=== PATIENT | female | born 1955 | race Caucasian/White ===

== ENCOUNTER → 2020-03-22 | Outpatient (CLI) | payer OTHER | LOC: DIA.ED | DX: E11.40 Type 2 diabetes mellitus with diabetic neuropathy, unspecified (principal); Z79.84 Long term (current) use of oral hypoglycemic drugs; I10 Essential (primary) hypertension; E03.9 Hypothyroidism, unspecified | CPT/HCPCS: G0108 ==

== ENCOUNTER → 2020-03-27 | Outpatient (CLI) | payer OTHER | LOC: DIA.ED 10:48 | DX: E11.40 Type 2 diabetes mellitus with diabetic neuropathy, unspecified (principal); Z79.84 Long term (current) use of oral hypoglycemic drugs; I25.10 Atherosclerotic heart disease of native coronary artery without angina pectoris; I10 Essential (primary) hypertension; E03.9 Hypothyroidism, unspecified | CPT/HCPCS: G0108 ==

== ENCOUNTER → 2020-04-28 | Outpatient (CLI) | payer OTHER | LOC: MC.RAD 09:30 | DX: N63.20 Unspecified lump in the left breast, unspecified quadrant (principal) ==

== ENCOUNTER → 2020-10-27 | Outpatient (CLI) | payer MEDICARE | LOC: MC.RAD 12:56 | DX: N63.20 Unspecified lump in the left breast, unspecified quadrant (principal) ==

== ENCOUNTER 2020-12-08 14:02 | Inpatient (IN) | payer MEDICARE, BC ==
[~2020-12-08] VITALS: Ht 177.8 cm; Wt 81.4 kg
[2020-12-08] VITALS (10 sets, daily range): BP systolic 112–132; BP diastolic 59–71; PULSE 100–108; TEMP 98.2–99.9
[2020-12-08 15:12] LABS: BASO % 0.3 % (0.0-2.0); EOS # 0.1 (0.0-0.7); EOS % 1.4 % (0-4.0); GRAN # 2.5 (1.4-6.5); GRAN % 68.2 % (42.2-75.2); LYMPH # 0.6 (1.2-3.4); LYMPH % 15.4 % (20.0-51.0); MEAN CELL VOLUME 82 fl (80.0-100.0); MEAN CORPUSCULAR HGB CONC 27 g/dl (33.0-37.0); MONO # 0.5 (0.1-0.6); MONO % 14.4 % (1.7-9.3); PLATELET COUNT 129 K/mm3 (130-400); RED BLOOD COUNT 2.12 M/mm3 (4.10-5.30); REDCELL DISTRIBUTION WIDTH-CV 19.8 % (11.5-14.5)
[2020-12-08] MEDS ORDERED: GLUCOTROL 5M5 MG/TAB PO (15:15)
[2020-12-08] MEDS ORDERED: PRILOTC (15:16)
[2020-12-08] MEDS ORDERED: ONE-A-DAY ESSE1 EACH PO (15:16)
[2020-12-08] MEDS ORDERED: LIPITOR20 MG PO (15:17)
[2020-12-08] MEDS ORDERED: FOLIC ACID 11 MG/TA1 PO (15:18)
[2020-12-08] MEDS ORDERED: EFFEXOR-XR150 MG PO (15:18)
[2020-12-08] MEDS ORDERED: GLUCOPHAGE1000 MG PO (15:19)
[2020-12-08] MEDS ORDERED: DESYREL 100MG100 MG PO (15:20)
[2020-12-08] MEDS ORDERED: SYNTHROID0.088 MG/T PO (15:20)
[2020-12-08] MEDS ORDERED: NORVASC 10MG10 MG PO (15:21)
[2020-12-08] MEDS ORDERED: IBU800 M1 PO (15:21)
[2020-12-08 15:22] LABS: HEMATOCRIT 17.3 % (37.0-47.0); HEMOGLOBIN 4.6 g/dl (12.5-16.0)
[2020-12-08] MEDS ORDERED: CALCIUM CARBON650 M2 (15:22)
[2020-12-08 15:33] LABS: ALBUMIN 3.8 gm/dL (3.5-5.0); BILIRUBIN,TOTAL 0.7 mg/dL (0.0-1.0); CALCIUM 8.4 mg/dL (8.4-10.2); CREATININE, serum 0.6 (0.52-1.25); POTASSIUM 3.2 mmol/L (3.4-5.0); TOTAL PROTEIN 7.9 gm/dL (6.4-8.2)
[2020-12-08 15:34] LABS: INR 1.6 (0.8-3.0); PROTHROMBIN TIME 17.9 SECONDS (9.7-12.8)
[2020-12-08 15:56] LABS: MEAN CORPUSCULAR HEMOGLOBIN 22 pg (27.0-31.0)
[2020-12-08 17:12] LABS: BASO % 0.3 % (0.0-2.0); EOS # 0.1 (0.0-0.7); EOS % 1.3 % (0-4.0); GRAN # 2.7 (1.4-6.5); GRAN % 67.8 % (42.2-75.2); LYMPH # 0.6 (1.2-3.4); MEAN CELL VOLUME 80 fl (80.0-100.0); MEAN CORPUSCULAR HGB CONC 28 g/dl (33.0-37.0); MEAN PLATELET VOLUME 10.7 fl (7.4-10.4); MONO # 0.6 (0.1-0.6); MONO % 15.3 % (1.7-9.3); PLATELET COUNT 126 K/mm3 (130-400); RED BLOOD COUNT 1.96 M/mm3 (4.10-5.30); REDCELL DISTRIBUTION WIDTH-CV 19.7 % (11.5-14.5)
[2020-12-08 17:14] LABS: MEAN CORPUSCULAR HEMOGLOBIN 22 pg (27.0-31.0)
[2020-12-08 17:15] LABS: HEMATOCRIT 15.7 % (37.0-47.0); HEMOGLOBIN 4.4 g/dl (12.5-16.0)
[2020-12-08 17:19] LABS: INR 1.6 (0.8-3.0); PROTHROMBIN TIME 18.3 SECONDS (9.7-12.8)
[2020-12-08 17:47] LABS: RETIC # 0.03 M/mm3 (0.02-0.16); RETIC % 1.6 % (0.5-3.52)
--- NOTE | 2020-12-08 19:02 | NUR ---
Patient has been doing well since being admitted to floor. Got to floor around 1745. Second IV started to right forearm. Blood transfusing, increased to 150ml/hr when she arrived to the floor. Patient is alert and oriented. Discussed her home medication list with her. The medication ibrance is not her home medication. She thinks it is a medication her mother takes for breast cancer. She stated it doesn't sound familiar at all. The medication has been getting filled monthly. Notified pharmacy. Explained to patient that somehow the pharmacy has got the accounts mixed up and it is showing up that she takes this medication. Oriented patient to room. Vital signs stable. Explained she may be getting more than the 2 units of blood. No other changes at this time. Call light within reach. Patient is eating supper at this time. She has notified her family of her admission.
--- NOTE | 2020-12-08 20:00 | NUR ---
Second unit of PRBCS started at this time- VSS, no adverse reactions with first unit- tolerating well, IV fluids of NS at 100cc/hr-
[2020-12-08 23:27] LABS: MEAN CELL VOLUME 80 fl (80.0-100.0); MEAN CORPUSCULAR HGB CONC 30 g/dl (33.0-37.0); MEAN PLATELET VOLUME 10.7 fl (7.4-10.4); PLATELET COUNT 113 K/mm3 (130-400); RED BLOOD COUNT 2.71 M/mm3 (4.10-5.30); REDCELL DISTRIBUTION WIDTH-CV 17.9 % (11.5-14.5)
[2020-12-08 23:31] LABS: HEMATOCRIT 21.7 % (37.0-47.0); HEMOGLOBIN 6.5 g/dl (12.5-16.0); MEAN CORPUSCULAR HEMOGLOBIN 24 pg (27.0-31.0)
[2020-12-09] VITALS (14 sets, daily range): BP systolic 120–162; BP diastolic 58–85; PULSE 98–105; TEMP 98.2–99.8
--- NOTE | 2020-12-09 00:28 | NUR ---
repeat hgb cone after 2 units of blood- hgb 6.5,, Bonnie aware--order to give another unit of blood- Started at this time . patient tolerating blood without adverse reactions-
--- NOTE | 2020-12-09 04:47 | NUR ---
3 units of blood given last evening/night- tolerated well- VSS. waiting for lab to do a repeat hgb check.
[2020-12-09 06:59] LABS: MEAN CELL VOLUME 84 fl (80.0-100.0); MEAN CORPUSCULAR HGB CONC 30 g/dl (33.0-37.0); MEAN PLATELET VOLUME 11.1 fl (7.4-10.4); PLATELET COUNT 118 K/mm3 (130-400); RED BLOOD COUNT 2.92 M/mm3 (4.10-5.30); REDCELL DISTRIBUTION WIDTH-CV 18.1 % (11.5-14.5)
[2020-12-09 07:00] LABS: HEMATOCRIT 24.4 % (37.0-47.0); HEMOGLOBIN 7.3 g/dl (12.5-16.0); MEAN CORPUSCULAR HEMOGLOBIN 25 pg (27.0-31.0)
--- NOTE | 2020-12-09 07:00 | NUR ---
Report received from FLAQUITO Rodriguez. PT in bed resting, feeling well, denies needs, will continue to monitor.
[2020-12-09 07:15] LABS: ALBUMIN 3.3 gm/dL (3.5-5.0); BILIRUBIN,TOTAL 1.1 mg/dL (0.0-1.0); CALCIUM 8.2 mg/dL (8.4-10.2); CREATININE, serum 0.44 (0.52-1.25); POTASSIUM 3.5 mmol/L (3.4-5.0); TOTAL PROTEIN 6.8 gm/dL (6.4-8.2)
[2020-12-09 07:37] LABS: IRON,SERUM 45 ug/dL (35-150)
[2020-12-09 07:47] LABS: TOTAL IRON BINDING CAPACITY 455 ug/dL (265-497)
--- NOTE | 2020-12-09 08:08 | NUR ---
Assessment charted. PT states she feels SOB when ambulating and weak but appears well. R eye black eye from fall at home when tripped over rug, healing well. IVF to RFA. INT to LFA. Prepped for EGD today. Denies pain or other needs, will continue to monitor.
[2020-12-09 08:14] LABS: ANISOCYTOSIS 1+; EOSINOPHIL 4 % (0-4); HYPOCHROMIA 1+; LYMPHOCYTE 6 % (20.0-51.0); NEUTROPHILS 83 % (42.0-75.2); PLATELET ESTIMATE DECREASED (NORMAL)
[2020-12-09 14:35] LABS: MEAN CELL VOLUME 84 fl (80.0-100.0); MEAN CORPUSCULAR HGB CONC 29 g/dl (33.0-37.0); PLATELET COUNT 118 K/mm3 (130-400); RED BLOOD COUNT 3.22 M/mm3 (4.10-5.30); REDCELL DISTRIBUTION WIDTH-CV 17.9 % (11.5-14.5)
[2020-12-09 14:36] LABS: HEMATOCRIT 27.1 % (37.0-47.0); HEMOGLOBIN 7.9 g/dl (12.5-16.0); MEAN CORPUSCULAR HEMOGLOBIN 25 pg (27.0-31.0)
--- NOTE | 2020-12-09 16:49 | NUR ---
Plan is to retun home. DEEDEE met with patient in room with sister Reina Palafox (Margerette) DPOA, educated we do not have a copay of the DPOA and need a copy, verbal documented. Patient reports that her PCP is Dr. Garcia and she uses [facility] without any difficulty. Patient declines any skilled services at this time. Patient denies having any DME supports. Patient also has transportation home and has a vehicle in the parking lot. Educated on services avaiable to them. Patient gave permission to talk in front of sister about care. NF.
--- NOTE | 2020-12-09 19:29 | NUR ---
Pt has done well over shift, taking in lots of ice water PO, sister at bedside most of day. REsting quietly in bed most of afternoon but did get up this evening and got lost in hallway with other nurses, able to get back to room and state she is not confused. Called Bonnie heredia hospitalist and notified of change in mentation, orders received and implemented. Nightshift report given and nightshift to resume care.
[2020-12-09 20:22] LABS: COLLECTION METHOD CLEAN CATCH
[2020-12-09 20:28] LABS: PH 8 (5-8); SQUAMOUS EPITHELIAL None Seen /hpf; URINE APPEARANCE Clear; URINE BACTERIA Rare /hpf; URINE BILIRUBIN Negative (NEGATIVE); URINE BLOOD Negative (NEGATIVE); URINE COLOR Straw; URINE GLUCOSE Negative (NEGATIVE); URINE KETONE Negative (NEGATIVE); URINE LEUKOCYTE ESTERASE Negative (NEGATIVE); URINE NITRATE Negative (NEGATIVE); URINE PROTEIN(semi-quant) Negative (NEGATIVE); URINE RBC 0-2 /hpf; URINE WBC 0-2 /hpf
--- NOTE | 2020-12-09 20:30 | NUR ---
Initial shift assessment done- denies any anxiety- not confused, oriented x4, states she just was upset earlier when she saw her dinner tray with all the pureed food and was wondering why?-- told her about the mechanical soft diet that was ordered after EGD,, states having acid reflux and requesting a TUMS-- given as ordered. VSS, states she feels fine, totally strady on feet- up to bathroom voiding large amounts urine.
[2020-12-09 20:58] LABS: TRICYCLIC ANTIDEPRESS URINE NEGATIVE
[2020-12-10 01:36] VITALS: BP 150/82; PULSE 110; TEMP 98.1
[2020-12-10 03:44] VITALS: BP 163/86; PULSE 110; TEMP 98
--- NOTE | 2020-12-10 05:32 | NUR ---
Did not sleep much last night- Ativan 1mg po x2 was given last night based on detox protocol-- also requested TUMS x3 for "acid stomach"--states burning all the way "up my esophagus",, states that the diet Sprite actually helped more than the TUMS. VSS.
[2020-12-10 05:56] VITALS: BP 154/81; PULSE 111; TEMP 97.6
[2020-12-10 06:20] LABS: BASO % 0.5 % (0.0-2.0); EOS # 0.1 (0.0-0.7); EOS % 2.2 % (0-4.0); GRAN # 4.6 (1.4-6.5); GRAN % 72.4 % (42.2-75.2); LYMPH # 0.7 (1.2-3.4); LYMPH % 10.8 % (20.0-51.0); MEAN CELL VOLUME 84 fl (80.0-100.0); MEAN CORPUSCULAR HGB CONC 30 g/dl (33.0-37.0); MEAN PLATELET VOLUME 11.4 fl (7.4-10.4); MONO # 0.9 (0.1-0.6); MONO % 13.5 % (1.7-9.3); PLATELET COUNT 129 K/mm3 (130-400); RED BLOOD COUNT 3.27 M/mm3 (4.10-5.30); REDCELL DISTRIBUTION WIDTH-CV 18.3 % (11.5-14.5)
[2020-12-10 06:28] LABS: HEMATOCRIT 27.3 % (37.0-47.0); HEMOGLOBIN 8.1 g/dl (12.5-16.0); MEAN CORPUSCULAR HEMOGLOBIN 25 pg (27.0-31.0)
[2020-12-10 06:31] LABS: ALBUMIN 3.9 gm/dL (3.5-5.0); BILIRUBIN,TOTAL 1.1 mg/dL (0.0-1.0); CREATININE, serum 0.39 (0.52-1.25); POTASSIUM 3.3 mmol/L (3.4-5.0); TOTAL PROTEIN 7.9 gm/dL (6.4-8.2)
--- NOTE | 2020-12-10 07:00 | NUR ---
Report received from FLAQUITO Rodriguez. pT in bed resting with eyes closed, will continue to monitor.
[2020-12-10 07:14] VITALS: BP 139/74; PULSE 112; TEMP 98.1
[2020-12-10] MEDS ORDERED: FERROUS SU325 MG/TAB PO (08:35)
[2020-12-10] MEDS ORDERED: PROTONIX 40MG T40 MG PO (08:37)
--- NOTE | 2020-12-10 09:23 | NUR ---
Assessment charted. Pt doing well, anticiatping discharge today. Discharge teaching completed at thsi time. Pt received discharge packet, INT dc'd by student nurse, lay portillo. Pt received discharge instructions for f/t appointments, new scripts sent to pharmacy, reviewed plan going home. Pt ordered breakfast, will eat breakfast and call when ride is here. Will be escorted out by medical staff with all belongings, mother to drive home, criteria met.
[2020-12-11 20:47] LABS: HAPTOGLOBIN 171 mg/dL (63-273)
[2020-12-12 11:04] LABS: ANA SCREEN with REFLEX Negative (Negative)
[2020-12-13 12:21] LABS: ANTISMOOTH MUSCLE ANTIBODY Positive (Negative)
== END 2020-12-10 10:30 | disposition home or self-care (01) | DRG 369 ==
LOC: COL.ER 14:02 → MEDICAL 16:01
PROVIDERS: Family Medicine; Internal Medicine Gastroenterology; Nurse Practitioner Family; ADMIT Family Medicine
PROC: 06L38CZ Occlusion of Esophageal Vein with Extraluminal Device, Via Natural or Artificial Opening Endoscopic (ICD-10-PCS; principal; 2020-12-09 09:00)
DX: I85.01 Esophageal varices with bleeding (principal); D62 Acute posthemorrhagic anemia; D61.818 Other pancytopenia; I10 Essential (primary) hypertension; E11.9 Type 2 diabetes mellitus without complications; E03.9 Hypothyroidism, unspecified; K21.9 Gastro-esophageal reflux disease without esophagitis; E78.5 Hyperlipidemia, unspecified; F32.9 Major depressive disorder, single episode, unspecified; G89.29 Other chronic pain; M54.9 Dorsalgia, unspecified; R00.0 Tachycardia, unspecified; K29.70 Gastritis, unspecified, without bleeding; E87.6 Hypokalemia; F10.10 Alcohol abuse, uncomplicated; R94.5 Abnormal results of liver function studies; G47.00 Insomnia, unspecified; R10.13 Epigastric pain; Z79.84 Long term (current) use of oral hypoglycemic drugs
CPT/HCPCS: 99222-AI; 99232-AI; 99239; C9113; J2405; J2704; J3430; J3480; J7030; J7120; P9016

== ENCOUNTER 2021-01-23 06:32 | Day surgery (SDC) | payer MEDICARE, BC ==
[~2021-01-23] VITALS: Ht 177.8 cm; Wt 78.4 kg
[~2021-01-23 06:32] MED LIST: CALCIUM CARBON650 M2; DESYREL 100MG100 MG PO; EFFEXOR-XR150 MG PO; FERROUS SU325 MG/TAB PO; FOLIC ACID 11 MG/TA1 PO; GLUCOPHAGE1000 MG PO; GLUCOTROL 5M5 MG/TAB PO; IBU800 M1 PO; LIPITOR20 MG PO; NORVASC 10MG10 MG PO; ONE-A-DAY ESSE1 EACH PO; PRILOTC; PROTONIX 40MG T40 MG PO; SYNTHROID0.088 MG/T PO
[2021-01-23 07:16] VITALS: BP 144/78; PULSE 126; TEMP 99.8
[2021-01-23] MEDS ORDERED: NORVASC 5MG5 MG/TAB PO (07:26)
[2021-01-23] MEDS ORDERED: FOLIC ACID 11 MG/TA1 PO (07:27)
[2021-01-23] MEDS ORDERED: AMOXICILLIN 50500 MG PO (07:32)
[2021-01-23] MEDS ORDERED: BENADRYL25 M2 PO (07:33)
[2021-01-23] MEDS ORDERED: MELATONIN5 M1 PO (07:34)
[2021-01-23] MEDS ORDERED: PROTONIX 40MG T40 MG PO (07:36)
[2021-01-23 08:45] VITALS: BP 162/94; PULSE 118; TEMP 98.5
--- NOTE | 2021-01-23 08:45 | NUR ---
returned to [facility] after procedure, ambulated from cart into room and into recliner, provided ice chips and sprite per her request
[2021-01-23 09:00] VITALS: BP 167/88; PULSE 112
[2021-01-23 09:15] VITALS: BP 156/91; PULSE 111
--- NOTE | 2021-01-23 09:19 | NUR ---
taking sprite and ice chips and tolerates well, c/o some minor throat soreness and abodminal discomfort, asking about going home, daughter at bedside
--- NOTE | 2021-01-23 09:30 | NUR ---
is ready for discharge, IV discontinued and then assisted her up and into bathroom to void, then back to room and discharge instructions given to jose f and her sister, verbalizes understanding
--- NOTE | 2021-01-23 09:50 | NUR ---
discharged per WC
== END 2021-01-23 09:50 | disposition home or self-care (01) ==
LOC: SDCO 06:32
DX: D50.9 Iron deficiency anemia, unspecified (principal); K64.0 First degree hemorrhoids; K70.30 Alcoholic cirrhosis of liver without ascites; K21.9 Gastro-esophageal reflux disease without esophagitis; I85.00 Esophageal varices without bleeding; I10 Essential (primary) hypertension; E78.5 Hyperlipidemia, unspecified; E11.9 Type 2 diabetes mellitus without complications; E03.9 Hypothyroidism, unspecified; J30.9 Allergic rhinitis, unspecified; G89.29 Other chronic pain; M54.9 Dorsalgia, unspecified; F41.9 Anxiety disorder, unspecified; F32.9 Major depressive disorder, single episode, unspecified; Z20.822 Contact with and (suspected) exposure to COVID-19; Z86.010 Personal history of colon polyps; Z79.84 Long term (current) use of oral hypoglycemic drugs; Z79.899 Other long term (current) drug therapy; Z79.890 Hormone replacement therapy; Z90.49 Acquired absence of other specified parts of digestive tract
CPT/HCPCS: J2250; J2704; J7030

== ENCOUNTER → 2021-03-20 | Outpatient (CLI) | payer MEDICARE, BC ==
[~2021-03-20] MED LIST changes: +AMOXICILLIN 50500 MG PO; +BENADRYL25 M2 PO; +DOXYCYCLINE 10100 MG PO; +EFFEXOR 50M50 MG/TAB PO; +FLEXERIL 1010 MG/TAB PO; +MELATONIN5 M1 PO; +NORVASC 5MG5 MG/TAB PO; +PERCOCET 325 MG1 TA2 PO; +ZOFRAN ODT4 MG PO
== END ==
LOC: EDSTATUS 09:00 → SDCO 09:00 → ZCOL.LAB 12:00
DX: Z20.822 Contact with and (suspected) exposure to COVID-19 (principal); I85.00 Esophageal varices without bleeding

== ENCOUNTER 2021-03-22 16:43 | Emergency (ER) | payer MEDICARE, BC ==
[~2021-03-22] VITALS: Ht 175.3 cm; Wt 78.2 kg
[~2021-03-22 16:43] MED LIST changes: -DOXYCYCLINE 10100 MG PO; -EFFEXOR 50M50 MG/TAB PO; -FLEXERIL 1010 MG/TAB PO; -PERCOCET 325 MG1 TA2 PO; -ZOFRAN ODT4 MG PO
[2021-03-22 17:11] VITALS: TEMP 98.3
[2021-03-22] MEDS ORDERED: EFFEXOR 50M50 MG/TAB PO (17:52)
[2021-03-22] MEDS ORDERED: FLEXERIL 1010 MG/TAB PO ×3 (19:45→20:51)
[2021-03-22] MEDS ORDERED: PERCOCET 325 MG1 TA2 PO ×3 (19:45→20:51)
[2021-03-22 20:01] VITALS: BP 160/92; PULSE 119
== END 2021-03-22 20:07 | disposition home or self-care (01) ==
LOC: COL.ER 16:43
DX: S09.90XA Unspecified injury of head, initial encounter (principal); S16.1XXA Strain of muscle, fascia and tendon at neck level, initial encounter; S00.83XA Contusion of other part of head, initial encounter; E78.5 Hyperlipidemia, unspecified; E07.9 Disorder of thyroid, unspecified; Z79.899 Other long term (current) drug therapy; Z79.890 Hormone replacement therapy; W18.09XA Striking against other object with subsequent fall, initial encounter
CPT/HCPCS: J1170; J2270

== ENCOUNTER 2021-04-06 20:21 | Emergency (ER) | payer MEDICARE, BC ==
[~2021-04-06] VITALS: Ht 177.8 cm; Wt 78.2 kg
[~2021-04-06 20:21] MED LIST changes: +EFFEXOR 50M50 MG/TAB PO; +FLEXERIL 1010 MG/TAB PO; +PERCOCET 325 MG1 TA2 PO
[2021-04-06 21:23] LABS: BASO % 0.7 % (0.0-2.0); EOS # 0.1 (0.0-0.7); EOS % 1.8 % (0-4.0); GRAN # 2.6 (1.4-6.5); GRAN % 59.3 % (42.2-75.2); HEMATOCRIT 38.7 % (37.0-47.0); HEMOGLOBIN 12.2 g/dl (12.5-16.0); LYMPH # 1.1 (1.2-3.4); LYMPH % 24.4 % (20.0-51.0); MEAN CELL VOLUME 93 fl (80.0-100.0); MEAN CORPUSCULAR HEMOGLOBIN 29 pg (27.0-31.0); MEAN CORPUSCULAR HGB CONC 32 g/dl (33.0-37.0); MEAN PLATELET VOLUME 9.9 fl (7.4-10.4); MONO # 0.6 (0.1-0.6); MONO % 13.6 % (1.7-9.3); PLATELET COUNT 157 K/mm3 (130-400); RED BLOOD COUNT 4.18 M/mm3 (4.10-5.30); REDCELL DISTRIBUTION WIDTH-CV 17.4 % (11.5-14.5)
[2021-04-06 21:27] LABS: INR 1.4 (0.8-3.0); PROTHROMBIN TIME 15.4 SECONDS (9.7-12.8)
[2021-04-06 21:29] LABS: PARTIAL THROMBOPLASTIN TIME 33.2 SECONDS (26.0-37.0)
[2021-04-06 21:41] LABS: ALANINE AMINOTRANSFERASE 24 U/L (4-34); ALCOHOL(ethanol),MEDICAL 236 mg/dL; ALKALINE PHOSPHATASE 194 U/L (50-136); ANION GAP 18 mmol/L (7-16); AST,SGOT 51 U/L (15-37); BILIRUBIN,TOTAL 0.5 mg/dL (0.0-1.0); BLOOD UREA NITROGEN 6 mg/dL (7-17); CALCIUM 9.3 mg/dL (8.4-10.2); CARBON DIOXIDE 19 mmol/L (22-30); CHLORIDE 97 mmol/L (98-107); CREATININE, serum 0.59 (0.52-1.25); GLUCOSE 157 mg/dL (74-106); LIPASE 98 U/L (23-300); POTASSIUM 3.4 mmol/L (3.4-5.0); SODIUM 135 mmol/L (137-145); TOTAL PROTEIN 8.2 gm/dL (6.4-8.2)
[2021-04-06 21:41] LABS: PH 6 (5-8); SQUAMOUS EPITHELIAL 0-2 /hpf; URINE APPEARANCE Clear; URINE BACTERIA None Seen /hpf; URINE BILIRUBIN Negative (NEGATIVE); URINE BLOOD Negative (NEGATIVE); URINE COLOR Yellow; URINE GLUCOSE Negative (NEGATIVE); URINE KETONE Negative (NEGATIVE); URINE LEUKOCYTE ESTERASE Negative (NEGATIVE); URINE NITRATE Negative (NEGATIVE); URINE PROTEIN(semi-quant) Negative (NEGATIVE); URINE RBC 0-2 /hpf; URINE UROBILINOGEN Negative (NEGATIVE); URINE WBC None Seen /hpf
[2021-04-06 21:42] LABS: TRICYCLIC ANTIDEPRESS URINE NEGATIVE
[2021-04-06 21:53] LABS: COLLECTION METHOD CLEAN CATCH
[2021-04-06 22:01] LABS: TROPONIN-I < 0.012 ng/mL (0.000-0.035)
[2021-04-06 23:00] VITALS: BP 111/61; PULSE 105; TEMP 98.2
== END 2021-04-06 23:05 | disposition short-term general hospital (02) ==
LOC: COL.ER 20:21
PROVIDERS: Emergency Medicine
DX: S09.90XA Unspecified injury of head, initial encounter (principal); S16.1XXA Strain of muscle, fascia and tendon at neck level, initial encounter; R29.810 Facial weakness; E11.9 Type 2 diabetes mellitus without complications; R40.2410 Glasgow coma scale score 13-15, unspecified time; Z20.822 Contact with and (suspected) exposure to COVID-19; Z79.84 Long term (current) use of oral hypoglycemic drugs; W19.XXXA Unspecified fall, initial encounter; W22.8XXA Striking against or struck by other objects, initial encounter
CPT/HCPCS: J0696; J7030; Q9967

== ENCOUNTER 2021-08-02 21:04 | Emergency (ER) | payer MEDICARE, BC ==
[~2021-08-02] VITALS: Ht 177.8 cm; Wt 81.8 kg
[2021-08-02 21:18] VITALS: TEMP 98.2
[2021-08-02 22:56] LABS: HEMATOCRIT 38.4 % (37.0-47.0); HEMOGLOBIN 13.8 g/dl (12.5-16.0); MEAN CELL VOLUME 93 fl (80.0-100.0); MEAN CORPUSCULAR HEMOGLOBIN 34 pg (27.0-31.0); MEAN CORPUSCULAR HGB CONC 36 g/dl (33.0-37.0); MEAN PLATELET VOLUME 9.3 fl (7.4-10.4); PLATELET COUNT 129 K/mm3 (130-400); RED BLOOD COUNT 4.11 M/mm3 (4.10-5.30); REDCELL DISTRIBUTION WIDTH-CV 15.5 % (11.5-14.5)
[2021-08-02 23:09] LABS: BILIRUBIN,TOTAL 1.7 mg/dL (0.2-1.2); CALCIUM 10.5 mg/dL (8.4-10.2); CREATININE, serum 0.71 mg/dL (0.57-1.11); POTASSIUM 4.2 mmol/L (3.5-4.5); TOTAL PROTEIN 8.2 gm/dL (6.2-8.1)
[2021-08-03 01:10] LABS: BASOPHIL 1 % (0-2); LYMPHOCYTE 19 % (20.0-51.0); NEUTROPHILS 61 % (42.0-75.2)
[2021-08-03 01:12] LABS: ANISOCYTOSIS 1+; PLATELET ESTIMATE DECREASED (NORMAL)
[2021-08-03 01:31] VITALS: BP 134/86; PULSE 120
== END 2021-08-03 00:54 | disposition home or self-care (01) ==
LOC: COL.ER 21:04
PROVIDERS: Emergency Medicine
DX: K92.1 Melena (principal); R00.0 Tachycardia, unspecified; I10 Essential (primary) hypertension; E11.9 Type 2 diabetes mellitus without complications; F32.A Depression, unspecified; Z79.84 Long term (current) use of oral hypoglycemic drugs; Z79.899 Other long term (current) drug therapy
CPT/HCPCS: C9113; J7030

== ENCOUNTER 2021-08-13 19:11 | Emergency (ER) | payer MEDICARE, BC ==
[~2021-08-13] VITALS: Ht 177.8 cm; Wt 81.8 kg
[2021-08-13 19:27] VITALS: TEMP 98.1
[2021-08-13 21:10] LABS: BASO % 0.6 % (0.0-2.0); EOS # 0.1 K/mm3 (0.0-0.7); GRAN # 4.4 K/mm3 (1.4-6.5); GRAN % 69.7 % (42.2-75.2); HEMOGLOBIN 13.6 g/dl (12.5-16.0); LYMPH # 0.8 K/mm3 (1.2-3.4); LYMPH % 12.6 % (20.0-51.0); MEAN CELL VOLUME 98 fl (80.0-100.0); MEAN CORPUSCULAR HEMOGLOBIN 33 pg (27.0-31.0); MEAN CORPUSCULAR HGB CONC 34 g/dl (33.0-37.0); MEAN PLATELET VOLUME 9.8 fl (7.4-10.4); MONO % 15.8 % (1.7-9.3); PLATELET COUNT 172 K/mm3 (130-400); RED BLOOD COUNT 4.09 M/mm3 (4.10-5.30); REDCELL DISTRIBUTION WIDTH-CV 15.6 % (11.5-14.5)
[2021-08-13] MEDS ORDERED: DOXYCYCLINE 10100 MG PO (21:34)
[2021-08-13] MEDS ORDERED: ZOFRAN ODT4 MG PO (21:34)
[2021-08-13 21:41] LABS: BILIRUBIN,TOTAL 1.6 mg/dL (0.2-1.2); C-REACTIVE PROTEIN 0.99 mg/dL (0.00-0.50); CALCIUM 9.3 mg/dL (8.4-10.2); CREATININE, serum 0.69 mg/dL (0.57-1.11); POTASSIUM 4.3 mmol/L (3.5-4.5); TOTAL PROTEIN 8.7 gm/dL (6.2-8.1)
[2021-08-13 22:23] VITALS: BP 144/58; PULSE 76
== END 2021-08-13 22:23 | disposition home or self-care (01) ==
LOC: COL.ER 19:11
PROVIDERS: Family Medicine
DX: L03.115 Cellulitis of right lower limb (principal); L02.611 Cutaneous abscess of right foot; I10 Essential (primary) hypertension; E11.9 Type 2 diabetes mellitus without complications; F32.A Depression, unspecified; Z79.84 Long term (current) use of oral hypoglycemic drugs; Z79.899 Other long term (current) drug therapy

== ENCOUNTER → 2021-08-17 | Outpatient (CLI) | payer MEDICARE, BC ==
[~2021-08-17] MED LIST changes: +DOXYCYCLINE 10100 MG PO; +ZOFRAN ODT4 MG PO
== END ==
LOC: COL.RAD 10:38
DX: Z01.812 Encounter for preprocedural laboratory examination (principal); G31.89 Other specified degenerative diseases of nervous system; Z86.73 Personal history of transient ischemic attack (TIA), and cerebral infarction without residual deficits

== ENCOUNTER → 2021-09-11 | Outpatient (CLI) | payer MEDICARE, BC | LOC: COL.VAS 11:37 | DX: I65.23 Occlusion and stenosis of bilateral carotid arteries (principal) ==

== ENCOUNTER 2021-10-21 20:52 | Emergency (ER) | payer MEDICARE, BC ==
[~2021-10-21] VITALS: Ht 177.8 cm; Wt 81.8 kg
[2021-10-21 20:56] VITALS: TEMP 97.9
[2021-10-21 23:46] VITALS: BP 132/84; PULSE 115
== END 2021-10-21 23:47 | disposition home or self-care (01) ==
LOC: COL.ER 20:52
DX: S09.90XA Unspecified injury of head, initial encounter (principal); S01.01XA Laceration without foreign body of scalp, initial encounter; F10.129 Alcohol abuse with intoxication, unspecified; E11.9 Type 2 diabetes mellitus without complications; Z79.84 Long term (current) use of oral hypoglycemic drugs; W01.0XXA Fall on same level from slipping, tripping and stumbling without subsequent striking against object, initial encounter

== ENCOUNTER 2021-10-27 18:47 | Emergency (ER) | payer MEDICARE, BC ==
[~2021-10-27] VITALS: Ht 177.8 cm; Wt 81.8 kg
[2021-10-27 18:48] VITALS: TEMP 98.6
[2021-10-27 19:05] LABS: HEMOGLOBIN 10.9 g/dl (12.5-16.0); MEAN CELL VOLUME 101 fl (80.0-100.0); MEAN CORPUSCULAR HEMOGLOBIN 34 pg (27-31); MEAN CORPUSCULAR HGB CONC 33 g/dl (33.0-37.0); MEAN PLATELET VOLUME 9.5 fl (7.4-10.4); PLATELET COUNT 131 K/mm3 (130-400); RED BLOOD COUNT 3.24 M/mm3 (4.10-5.30); REDCELL DISTRIBUTION WIDTH-CV 13.7 % (11.5-14.5)
[2021-10-27 19:06] LABS: HEMATOCRIT 32.6 % (37.0-47.0)
[2021-10-27 19:25] LABS: ALANINE AMINOTRANSFERASE 50 U/L (0-55); ALBUMIN 3.4 gm/dL (3.4-4.8); ALKALINE PHOSPHATASE 225 U/L (40-150); ANION GAP 18 mmol/L (7-16); AST,SGOT 64 U/L (5-34); BILIRUBIN,TOTAL 1.8 mg/dL (0.2-1.2); BLOOD UREA NITROGEN 9 mg/dL (10-20); C-REACTIVE PROTEIN 3.86 mg/dL (0.00-0.50); CALCIUM 8.7 mg/dL (8.4-10.2); CARBON DIOXIDE 17 mmol/L (23-31); CHLORIDE 101 mmol/L (98-107); CREATININE, serum 0.77 mg/dL (0.57-1.11); GLUCOSE 279 mg/dL (70-99); MAGNESIUM 1.7 mg/dL (1.6-2.6); POTASSIUM 3.1 mmol/L (3.5-4.5); SODIUM 136 mmol/L (136-145); TOTAL PROTEIN 7.7 gm/dL (6.2-8.1)
[2021-10-27 19:27] LABS: ACETAMINOPHEN < 1.0 ug/mL (10-30); ALCOHOL(ethanol),MEDICAL < 10 mg/dL (0-10); SALICYLATE < 5.0 mg/dL (15.0-30.0)
[2021-10-27 19:45] LABS: TSH w REFLEX 0.495 uIU/mL (0.350-4.940)
[2021-10-27 20:01] LABS: BAND 9 % (0-10); LYMPHOCYTE 8 % (20.0-51.0); NEUTROPHILS 74 % (42.0-75.2); PLATELET ESTIMATE NORMAL (NORMAL)
[2021-10-27 22:05] VITALS: BP 137/79; PULSE 95
== END 2021-10-27 23:05 | disposition short-term general hospital (02) ==
LOC: COL.ER 18:47
PROVIDERS: Emergency Medicine
DX: S06.339A Contusion and laceration of cerebrum, unspecified, with loss of consciousness of unspecified duration, initial encounter (principal); F10.239 Alcohol dependence with withdrawal, unspecified; I10 Essential (primary) hypertension; E11.9 Type 2 diabetes mellitus without complications; Z20.822 Contact with and (suspected) exposure to COVID-19; Z79.84 Long term (current) use of oral hypoglycemic drugs; Z79.899 Other long term (current) drug therapy; W18.30XA Fall on same level, unspecified, initial encounter
CPT/HCPCS: J1953; J2060; J7030

== ENCOUNTER → 2021-12-21 | Outpatient (CLI) | payer MEDICARE, BC | LOC: COL.RAD 09:27 | DX: M48.54XA Collapsed vertebra, not elsewhere classified, thoracic region, initial encounter for fracture (principal) ==

== ENCOUNTER → 2021-12-28 | Outpatient (CLI) | payer MEDICARE, BC | LOC: ZLAB.STJ 17:44 | DX: E55.9 Vitamin D deficiency, unspecified (principal) ==

== ENCOUNTER → 2022-04-02 | Outpatient (CLI) | payer MEDICARE, BC ==
[2022-04-02 19:38] LABS: COLLECTION METHOD CLEAN CATCH
[2022-04-02 19:49] LABS: MUCOUS Present (NOT PRESENT); PH 6 (5-8); SQUAMOUS EPITHELIAL 0-2 /hpf (0-10); URINE APPEARANCE Hazy (CLEAR/HAZY); URINE BACTERIA None Seen /hpf (NONE SEEN); URINE BLOOD Negative (NEGATIVE); URINE COLOR Yellow (YELLOW); URINE GLUCOSE 3+ (NEGATIVE); URINE KETONE Negative (NEGATIVE); URINE NITRATE Negative (NEGATIVE); URINE PROTEIN(semi-quant) Negative (NEGATIVE); URINE RBC 0-2 /hpf (0-2)
== END ==
LOC: ZCOL.LAB 19:35
PROVIDERS: Family Medicine
DX: N39.0 Urinary tract infection, site not specified (principal)

== ENCOUNTER → 2022-07-18 | Outpatient (CLI) | payer MEDICARE, BC | LOC: MC.RAD 11:00 | DX: N63.22 Unspecified lump in the left breast, upper inner quadrant (principal) ==

== ENCOUNTER → 2023-09-18 | Outpatient (CLI) | payer MEDICARE | LOC: MC.RAD 10:58 | DX: Z12.31 Encounter for screening mammogram for malignant neoplasm of breast (principal) ==

== ENCOUNTER 2023-11-05 02:49 | Emergency (ER) | payer MEDICARE, BC, MEDICAID ==
[~2023-11-05] VITALS: Ht 172.7 cm; Wt 84.1 kg
[2023-11-05 02:50] VITALS: TEMP 98.6
[2023-11-05] MEDS ORDERED: NS 1,000 ML IV ONE (03:00)
[2023-11-05 03:05] LABS: BASO % 0.5 % (0.0-2.0); EOS # 0.2 K/mm3 (0.0-0.7); EOS % 2.4 % (0.0-4.0); GRAN # 3.8 K/mm3 (1.4-6.5); GRAN % 60.5 % (42.2-75.2); HEMATOCRIT 43.9 % (37.0-47.0); HEMOGLOBIN 14.4 g/dl (12.5-16.0); LYMPH # 1.8 K/mm3 (1.2-3.4); LYMPH % 28.5 % (20.0-51.0); MEAN CELL VOLUME 98 fl (80.0-100.0); MEAN CORPUSCULAR HEMOGLOBIN 32 pg (27-31); MEAN CORPUSCULAR HGB CONC 33 g/dl (33.0-37.0); MEAN PLATELET VOLUME 10.3 fl (7.4-10.4); MONO # 0.5 K/mm3 (0.1-0.6); MONO % 7.9 % (1.7-9.3); PLATELET COUNT 119 K/mm3 (130-400); RED BLOOD COUNT 4.47 M/mm3 (4.10-5.30); REDCELL DISTRIBUTION WIDTH-CV 14.6 % (11.5-14.5)
[2023-11-05 03:14] LABS: INR 1.3 (0.8-3.0); PROTHROMBIN TIME 13.8 SECONDS (9.7-12.8)
[2023-11-05 03:29] LABS: ALANINE AMINOTRANSFERASE 39 U/L (0-55); ALBUMIN 3.7 gm/dL (3.4-4.8); ALKALINE PHOSPHATASE 130 U/L (40-150); ANION GAP 16 mmol/L (7-16); AST,SGOT 39 U/L (5-34); BILIRUBIN,TOTAL 0.4 mg/dL (0.2-1.2); BLOOD UREA NITROGEN 11 mg/dL (10-20); CALCIUM 9.7 mg/dL (8.4-10.2); CARBON DIOXIDE 21 mmol/L (23-31); CHLORIDE 106 mmol/L (98-107); CREATINE KINASE 78 U/L (29-168); CREATININE, serum 0.69 mg/dL (0.57-1.11); GLUCOSE 119 mg/dL (70-99); POTASSIUM 3.8 mmol/L (3.5-4.5); SODIUM 143 mmol/L (136-145); TOTAL PROTEIN 7.6 gm/dL (6.2-8.1)
[2023-11-05 03:37] LABS: TROPONIN-I < 0.010 ng/mL (0.00-0.033)
[2023-11-05 03:43] LABS: COLLECTION METHOD CATHETER
[2023-11-05 03:52] LABS: URINE APPEARANCE CLEAR (CLEAR/HAZY); URINE BLOOD 2+ (NEGATIVE); URINE COLOR YELLOW (YELLOW); URINE GLUCOSE 3+ (NEGATIVE); URINE KETONE NEGATIVE (NEGATIVE); URINE NITRATE NEGATIVE (NEGATIVE); URINE PROTEIN(semi-quant) NEGATIVE (NEGATIVE); URINE UROBILINOGEN 0.2 E.U/dL (0.2-1.0)
[2023-11-05] MEDS ORDERED: NATURE'S BLEND100 M2 PO (06:12)
[2023-11-05 06:26] VITALS: BP 127/84
[2023-11-05 09:11] VITALS: PULSE 118
== END 2023-11-05 09:11 | disposition home or self-care (01) ==
LOC: COL.ER 02:49
PROVIDERS: Emergency Medicine
DX: F10.129 Alcohol abuse with intoxication, unspecified (principal); Z91.81 History of falling; Y90.8 Blood alcohol level of 240 mg/100 ml or more
CPT/HCPCS: J3411; J7030

== ENCOUNTER 2024-04-08 18:03 | Emergency (ER) | payer MEDICARE, BC, MEDICAID ==
[~2024-04-08] VITALS: Ht 177.8 cm; Wt 86.4 kg
[~2024-04-08 18:03] MED LIST changes: +CALCIUM 600-D 61 TAB PO; -CALCIUM CARBON650 M2; +MELATONIN ER10 MG PO; -MELATONIN5 M1 PO; +NATURE'S BLEND100 M2 PO; +PROTONIX20 MG PO
[2024-04-08 18:04] VITALS: TEMP 98.9
[2024-04-08] MEDS ORDERED: Ondansetron 4 MG/2 ML VIAL IV ONE (18:30)
[2024-04-08] MEDS ORDERED: Morphine 4 MG/ML VIAL IV ONE (18:30)
[2024-04-08 19:26] LABS: ALANINE AMINOTRANSFERASE 35 U/L (0-55); ALBUMIN 3.5 g/dL (3.4-4.8); ALKALINE PHOSPHATASE 144 U/L (40-150); ANION GAP 15 mmol/L (7-16); AST,SGOT 40 U/L (5-34); BILIRUBIN,TOTAL 0.9 mg/dL (0.2-1.2); BLOOD UREA NITROGEN 12 mg/dL (10-20); CALCIUM 9.6 mg/dL (8.4-10.2); CHLORIDE 105 mEq/L (98-107); CREATININE, serum 0.67 mg/dL (0.57-1.11); GLUCOSE 110 mg/dL (70-99); POTASSIUM 4.3 mEq/L (3.5-4.5); SODIUM 140 mEq/L (136-145); TOTAL PROTEIN 7.8 g/dl (6.2-8.1)
[2024-04-08 19:30] LABS: ALCOHOL(ethanol),MEDICAL < 10 mg/dL (0-10)
[2024-04-08 19:58] LABS: BASO % 0.3 % (0.0-2.0); EOS # 0.1 K/mm3 (0.0-0.7); EOS % 1.4 % (0.0-4.0); GRAN # 5.1 K/mm3 (1.4-6.5); GRAN % 79.5 % (42.2-75.2); HEMATOCRIT 44.1 % (37.0-47.0); HEMOGLOBIN 14.9 g/dl (12.5-16.0); LYMPH # 0.6 K/mm3 (1.2-3.4); LYMPH % 9.1 % (20.0-51.0); MEAN CELL VOLUME 96 fl (80.0-100.0); MEAN CORPUSCULAR HEMOGLOBIN 33 pg (27-31); MEAN CORPUSCULAR HGB CONC 34 g/dl (33.0-37.0); MEAN PLATELET VOLUME 10.1 fl (7.4-10.4); MONO # 0.6 K/mm3 (0.1-0.6); MONO % 9.5 % (1.7-9.3); PLATELET COUNT 87 K/mm3 (130-400); RED BLOOD COUNT 4.58 M/mm3 (4.10-5.30); REDCELL DISTRIBUTION WIDTH-CV 13.6 % (11.5-14.5)
[2024-04-08] MEDS ORDERED: NS 1,000 ML IV ONE (20:30)
[2024-04-08] MEDS ORDERED: NS 500 ML IV ONE (20:30)
[2024-04-08] MEDS ORDERED: HYDROcodone/Acetaminophen 7.5-325 MG TAB PO ONE (21:45)
[2024-04-08 23:06] VITALS: BP 148/82; PULSE 101
[2024-04-19] MEDS ORDERED: ACIDOPHILIS PO (07:38)
[2024-04-19] MEDS ORDERED: TYLENOL 8 HR PO (07:38)
[2024-04-19] MEDS ORDERED: AMBIEN CR 12.12.5 MG PO (07:39)
[2024-04-19] MEDS ORDERED: ATIVAN 0.50.5 MG/TAB PO (07:41)
[2024-04-19] MEDS ORDERED: NATURE'S BLE1000 MCG PO (08:07)
[2024-04-19] MEDS ORDERED: CLARITIN 1010 MG/TAB PO (08:08)
[2024-04-19] MEDS ORDERED: CRESTOR 10MG10 MG PO (08:08)
[2024-04-19] MEDS ORDERED: FLEXERIL 1010 MG/TAB PO (08:09)
[2024-04-19] MEDS ORDERED: D3-5050000 IU PO (08:12)
[2024-04-19] MEDS ORDERED: FERRO-TIME325 MG PO (08:13)
[2024-04-19] MEDS ORDERED: JARDIANCE25 PO (08:15)
[2024-04-19] MEDS ORDERED: LEXAPRO 10MG10 MG PO (08:16)
[2024-04-19] MEDS ORDERED: LIDODERM 5% PATC1 EA TP (08:17)
[2024-04-19] MEDS ORDERED: ZESTRIL2.5 MG PO (08:18)
[2024-04-19] MEDS ORDERED: MIRALAX PA17 GM/Dose PO (08:19)
[2024-04-19] MEDS ORDERED: NEURONTIN300 MG/CAP PO (08:20)
[2024-04-19] MEDS ORDERED: NEURONTIN100 MG/CAP PO (08:20)
[2024-04-19] MEDS ORDERED: NORCO 325 MG-7.1 TAB PO (08:22)
[2024-04-19] MEDS ORDERED: NOVOLOG FLEX100 U/ML SQ (08:24)
[2024-04-19] MEDS ORDERED: PERIDEX (CHLOR480 ML MM (08:25)
[2024-04-19] MEDS ORDERED: DESYREL 50MG50 MG PO (08:26)
[2024-04-19] MEDS ORDERED: ULTRAM 50MG TAB50 MG PO (08:26)
[2024-04-19] MEDS ORDERED: TRESIBA FL200 UNIT/1 SQ (08:28)
[2024-04-19] MEDS ORDERED: TRULICITY1.5 MG/0.5 SQ (08:29)
== END 2024-04-08 23:06 | disposition home or self-care (01) ==
LOC: COL.ER 18:03
PROVIDERS: Nurse Practitioner
DX: S22.080A Wedge compression fracture of T11-T12 vertebra, initial encounter for closed fracture (principal); W19.XXXA Unspecified fall, initial encounter
CPT/HCPCS: J2270; J2405; J7030